=== PATIENT | female | born 1950 | race Caucasian/White ===

== ENCOUNTER 2016-08-17 19:49 | Observation (INO) | payer MEDICARE, OTHER ==
[~2016-08-17] VITALS: Ht 157.5 cm; Wt 84.1 kg
[2016-08-17 20:56] LABS: HEMOGLOBIN 13.5 gm/dl (12.3-15.3); RED BLOOD COUNT 4.72 M/UL (4.00-5.10); WHITE BLOOD COUNT 10.5 K/UL (4.5-11.0)
[2016-08-17 21:11] LABS: BUN/CREATININE RATIO 28 (0-10)
[2016-08-18] MEDS ORDERED: DULERA 200 MCG8.8 GM INH (00:44)
[2016-08-18] MEDS ORDERED: FLEXERIL 10 MG10 MG PO (00:44)
[2016-08-18] MEDS ORDERED: VENTOLIN/PROVE0.5 ML INH (00:45)
[2016-08-18] MEDS ORDERED: MONTELUKAST SODI4 MG PO (00:45)
[2016-08-18] MEDS ORDERED: FERROUS SULFAT325 M2 PO (00:46)
[2016-08-18] MEDS ORDERED: ZESTRIL/PRINIVI10 MG PO (00:47)
[2016-08-18] MEDS ORDERED: HYDROCHLOROTHIA25 MG PO (00:47)
[2016-08-18] MEDS ORDERED: [UNRECOGNIZED DRUG - REMARK] PO (00:47)
[2016-08-18] MEDS ORDERED: SINGULAIR10 MG PO (00:48)
[2016-08-18] MEDS ORDERED: GLUCOPHAGE XR750 MG PO (00:48)
[2016-08-18] MEDS ORDERED: ZOCOR 10 MG TAB10 MG PO (00:49)
[2016-08-18] MEDS ORDERED: NITROFURANTOIN100 MG PO (00:49)
[2016-08-18] MEDS ORDERED: TESSALON PERLE100 MG PO (00:50)
[2016-08-18] MEDS ORDERED: BREO ELLIPTA 11 EACH INH (00:50)
[2016-08-18] MEDS ORDERED: IBUPROFEN800 MG PO (00:51)
[2016-08-18] MEDS ORDERED: IPRATROPIU0.2 MG/1 M INH (02:42)
[2016-08-18] MEDS ORDERED: VENTOLIN HFA 66.7 GM INH (02:44)
[2016-08-18] MEDS ORDERED: ASPIRIN81 MG PO (02:45)
[2016-08-18 04:18] LABS: RED BLOOD COUNT 4.3 M/UL (4.00-5.10); WHITE BLOOD COUNT 8.7 K/UL (4.5-11.0)
[2016-08-18 08:13] LABS: BUN/CREATININE RATIO 24 (0-10)
[2016-08-19] MEDS ORDERED: CEFTIN250 MG/5 M PO (10:04)
== END 2016-08-19 10:22 | disposition home or self-care (01) ==
LOC: ER1 19:49 → ZEROF 23:50 → MED SURG 4 23:50
PROVIDERS: Emergency Medicine; Internal Medicine; ADMIT Internal Medicine
DX: N30.00 Acute cystitis without hematuria (principal); B96.20 Unspecified Escherichia coli [E. coli] as the cause of diseases classified elsewhere; B96.1 Klebsiella pneumoniae [K. pneumoniae] as the cause of diseases classified elsewhere; D84.9 Immunodeficiency, unspecified; E11.9 Type 2 diabetes mellitus without complications; I10 Essential (primary) hypertension; J44.9 Chronic obstructive pulmonary disease, unspecified; K76.0 Fatty (change of) liver, not elsewhere classified; Z87.891 Personal history of nicotine dependence; Z82.49 Family history of ischemic heart disease and other diseases of the circulatory system; Z88.1 Allergy status to other antibiotic agents; Z88.2 Allergy status to sulfonamides; Z79.82 Long term (current) use of aspirin; Z79.84 Long term (current) use of oral hypoglycemic drugs; Z79.899 Other long term (current) drug therapy
CPT/HCPCS: 36415; 80048; 80053; 81001; 82962; 83690; 85025; 85027; 87040; 87077; 87086; 87186; 94640; 94664; 96365; 96366; 96372; 96375; 96376; 99284; G0378; J0696; J1650; J2270; J2405; J7030; J7050

== ENCOUNTER → 2016-09-19 | Outpatient (CLI) | payer MEDICARE, OTHER ==
[~2016-09-19] MED LIST: ASPIRIN81 MG PO; BREO ELLIPTA 11 EACH INH; CEFTIN250 MG/5 M PO; DULERA 200 MCG8.8 GM INH; FERROUS SULFAT325 M2 PO; FLEXERIL 10 MG10 MG PO; GLUCOPHAGE XR750 MG PO; HYDROCHLOROTHIA25 MG PO; IBUPROFEN800 MG PO; IPRATROPIU0.2 MG/1 M INH; MONTELUKAST SODI4 MG PO; NITROFURANTOIN100 MG PO; SINGULAIR10 MG PO; TESSALON PERLE100 MG PO; VENTOLIN HFA 66.7 GM INH; VENTOLIN/PROVE0.5 ML INH; ZESTRIL/PRINIVI10 MG PO; ZOCOR 10 MG TAB10 MG PO; [UNRECOGNIZED DRUG - REMARK] PO
[2016-09-19 12:03] LABS: HEMOGLOBIN 12.9 gm/dl (12.3-15.3); RED BLOOD COUNT 4.57 M/UL (4.00-5.10); WHITE BLOOD COUNT 8.8 K/UL (4.5-11.0)
== END ==
LOC: LAB 11:35
PROVIDERS: Nurse Practitioner Family
DX: D83.9 Common variable immunodeficiency, unspecified (principal)
CPT/HCPCS: 36415; 82784; 82787; 85025

== ENCOUNTER 2016-10-08 16:22 | Emergency (ER) | payer MEDICARE, OTHER ==
[2016-10-08 18:26] LABS: BUN/CREATININE RATIO 23 (0-10)
[2016-10-08 18:44] LABS: HEMOGLOBIN 12.4 gm/dl (12.3-15.3); RED BLOOD COUNT 4.42 M/UL (4.00-5.10); WHITE BLOOD COUNT 9.4 K/UL (4.5-11.0)
== END 2016-10-08 21:16 | disposition home or self-care (01) ==
LOC: ER1 16:22
PROVIDERS: Physician Assistant
DX: J18.9 Pneumonia, unspecified organism (principal); N39.0 Urinary tract infection, site not specified; E11.9 Type 2 diabetes mellitus without complications; J44.9 Chronic obstructive pulmonary disease, unspecified; I10 Essential (primary) hypertension; E78.5 Hyperlipidemia, unspecified; Z87.891 Personal history of nicotine dependence; Z88.2 Allergy status to sulfonamides
CPT/HCPCS: 36415; 71010; 80053; 81001; 85025; 87077; 87086; 87186; 94664; 96374; 99284; J0696; J7050

== ENCOUNTER → 2020-07-05 | Outpatient (CLI) | payer MEDICARE, OTHER ==
[~2020-07-05] MED LIST changes: +ASPIR-LOW81 MG PO; -ASPIRIN81 MG PO; +ATIVAN 1MG TABLE1 MG PO; +ATIVAN1 MG PO; -BREO ELLIPTA 11 EACH INH; +BREO ELLIPTA 21 EACH INH; +BUTALB-ACETAMI1 EAC1 PO; +CENTRUM CHEWAB1 EAC2 PO; +CLARITHROMYCIN500 MG PO; +CLARITIN10 MG PO; +DEXAMETHASONE4 MG PO; +ETHAMBUTOL HCL400 MG PO; +FIBER625 MG PO; +GLUCOPHAGE 500500 MG PO; -GLUCOPHAGE XR750 MG PO; +LANTUS100 UNIT/1 SQ; +LEVAQUIN750 MG PO; +LEVOTHYROXINE50 MCG PO; +LISINOPRIL20 MG PO; +LISINOPRIL40 MG PO; +MACROBID 100 M100 MG PO; +MIRALAX17 GM PO; +MONTELUKAST SOD10 MG PO; +NORTRIPTYLINE H10 MG PO; +NOVOLOG 10100 UNITS1 INJ; +NOVOLOG100 UNIT/1 SC; +PANTOPRAZOLE SO40 MG PO; +PROAIR HFA8.5 GM INH; +PROTONIX40 MG PO; +PYRIDIUM100 MG PO; +TRULICITY0.75 MG/0. SQ; +VASCEPA1 GM PO; +VORICONAZOLE PO; +XOPENEX0.63 MG/3 INH; -ZESTRIL/PRINIVI10 MG PO; +ZESTRIL20 MG PO; +ZOCOR10 MG PO; +ZOFRAN 8 MG TAB8 MG PO; +ZOFRAN ODT 4 MG4 MG SL; +[UNRECOGNIZED DRUG - OTHER] IV
== END ==
LOC: HEART 5 16:08
DX: J44.9 Chronic obstructive pulmonary disease, unspecified (principal)
CPT/HCPCS: 94060; 94729

== ENCOUNTER 2020-11-17 03:59 | Emergency (ER) | payer MEDICARE, OTHER ==
[2020-11-17 04:42] LABS: HEMOGLOBIN 12.7 gm/dl (12.3-15.3); RED BLOOD COUNT 4.67 M/UL (4.00-5.10)
[2020-11-17 05:10] LABS: BUN/CREATININE RATIO 21 (0-10)
[2020-11-17] MEDS ORDERED: GUAIFENESIN AC473 ML PO (06:54)
== END 2020-11-17 07:22 | disposition home or self-care (01) ==
LOC: ER1 03:59
PROVIDERS: Student in an Organized Health Care Education/Training Program
DX: U07.1 COVID-19 (principal); F17.210 Nicotine dependence, cigarettes, uncomplicated; Z88.1 Allergy status to other antibiotic agents; J44.9 Chronic obstructive pulmonary disease, unspecified; E11.9 Type 2 diabetes mellitus without complications; I10 Essential (primary) hypertension; Z23 Encounter for immunization
CPT/HCPCS: 71045; 80053; 81001; 82550; 82553; 83874; 84484; 85025; 93005; 99285; M0243; U0002

== ENCOUNTER 2021-06-04 13:53 | Emergency (ER) | payer MEDICARE, OTHER ==
[~2021-06-04 13:53] MED LIST changes: +GUAIFENESIN AC473 ML PO
[2021-06-04 14:54] LABS: HEMOGLOBIN 12.9 gm/dl (12.3-15.3); RED BLOOD COUNT 4.59 M/UL (4.00-5.10); WHITE BLOOD COUNT 15.1 K/UL (4.5-11.0)
[2021-06-04] MEDS ORDERED: PHENERGAN 25 MG25 M1 PO (17:50)
[2021-06-04] MEDS ORDERED: BENTYL 10MG CAP10 MG PO (17:50)
== END 2021-06-04 18:35 | disposition home or self-care (01) ==
LOC: ER1 13:53
PROVIDERS: Physician Assistant
DX: E11.65 Type 2 diabetes mellitus with hyperglycemia (principal); R19.7 Diarrhea, unspecified; Z20.822 Contact with and (suspected) exposure to COVID-19; Z88.1 Allergy status to other antibiotic agents; Z87.891 Personal history of nicotine dependence
CPT/HCPCS: 80053; 81001; 83690; 85025; 96374; 96375; 99284; J1885; J2405; J2550; J7030; Q9967; U0002

== ENCOUNTER → 2021-08-17 | Outpatient (CLI) | payer MEDICARE, OTHER ==
[~2021-08-17] MED LIST changes: +BENTYL 10MG CAP10 MG PO; +PHENERGAN 25 MG25 M1 PO
[2021-08-17 09:38] LABS: BUN/CREATININE RATIO 36 (0-10)
== END ==
LOC: LAB 08:56
PROVIDERS: Internal Medicine
DX: C50.111 Malignant neoplasm of central portion of right female breast (principal); R19.5 Other fecal abnormalities; D83.9 Common variable immunodeficiency, unspecified; E55.9 Vitamin D deficiency, unspecified
CPT/HCPCS: 36415; 80053

== ENCOUNTER 2021-09-22 11:46 | Inpatient (IN) | payer MEDICARE, OTHER ==
[~2021-09-22] VITALS: Ht 165.1 cm; Wt 79.4 kg
[~2021-09-22 11:46] MED LIST changes: +LANTUS SOL100 UNIT/1 SQ; -LANTUS100 UNIT/1 SQ; -LEVOTHYROXINE50 MCG PO; +LEVOTHYROXINE75 MCG PO; +NOVOLOG FL100 UNIT/1 SQ; -NOVOLOG100 UNIT/1 SC; -PANTOPRAZOLE SO40 MG PO
[2021-09-22 13:39] LABS: HEMOGLOBIN 11.1 gm/dl (12.3-15.3); RED BLOOD COUNT 3.96 M/UL (4.00-5.10); WHITE BLOOD COUNT 12.1 K/UL (4.5-11.0)
[2021-09-22 13:57] LABS: BUN/CREATININE RATIO 19 (0-10)
[2021-09-22 17:56] LABS: BORDETELLA PARAPERTUSSIS Not Detected (Not Detectd); BORDETELLA PERTUSSIS Not Detected (Not Detectd); CHLAMYDIA PNEUMONIAE Not Detected (Not Detectd); CORONAVIRUS HKU1 Not Detected (Not Detectd); CORONAVIRUS NL63 Not Detected (Not Detectd); CORONAVIRUS OC43 Not Detected (Not Detectd); CORONOAVIRUS 229E Not Detected (Not Detectd); HUMAN METAPNEUMOVIRUS Not Detected (Not Detectd); HUMAN RHINOVIRUS/ENTEROVIRUS Not Detected (Not Detectd); INFLUENZA A Not Detected (Not Detectd); INFLUENZA B Not Detected (Not Detectd); MYCOPLASMA PNEUMONIAE Not Detected (Not Detectd); PARAINFLUENZA VIRUS 1 Not Detected (Not Detectd); PARAINFLUENZA VIRUS 2 Not Detected (Not Detectd); PARAINFLUENZA VIRUS 3 Not Detected (Not Detectd); PARAINFLUENZA VIRUS 4 Not Detected (Not Detectd); RESPIRATORY SYNCYTIAL VIRUS Not Detected (Not Detectd)
[2021-09-22] MEDS ORDERED: CARVEDILOL3.125 MG PO (18:35)
[2021-09-22] MEDS ORDERED: CHLORTHALIDONE25 MG PO (18:36)
[2021-09-22] MEDS ORDERED: DILTIAZEM 24HR240 M1 PO (18:37)
[2021-09-22] MEDS ORDERED: LEVALBUTER1.25 MG/3 INH (18:38)
[2021-09-22] MEDS ORDERED: ONDANSETRON ODT4 MG PO (18:39)
[2021-09-22] MEDS ORDERED: SPIRONOLACTONE25 MG PO (18:40)
[2021-09-22 19:02] LABS: SARS-CoV-2 DETECTED (Not Detectd)
[2021-09-23 07:58] LABS: HEMOGLOBIN 9.5 gm/dl (12.3-15.3); WHITE BLOOD COUNT 9.9 K/UL (4.5-11.0)
[2021-09-23 07:59] LABS: RED BLOOD COUNT 3.49 M/UL (4.00-5.10)
[2021-09-23 08:15] LABS: BUN/CREATININE RATIO 22 (0-10)
[2021-09-24 02:59] LABS: HEMOGLOBIN 9.8 gm/dl (12.3-15.3); RED BLOOD COUNT 3.56 M/UL (4.00-5.10); WHITE BLOOD COUNT 9.6 K/UL (4.5-11.0)
[2021-09-24 03:49] LABS: BUN/CREATININE RATIO 19 (0-10)
[2021-09-24 13:57] LABS: CAMPYLOBACTER Not Detected (Negative); CRYPTOSPORIDIUM Not Detected (Negative); E.COLI 0157 Not Detected (Negative); ENTEROAGGREGATIVE E.COLI (EAEC Not Detected (Negative); ENTEROPATHOGENIC E.COLI (EPEC) Not Detected (Negative); ENTEROTOXIGENIC E.COLI (ETEC) Not Detected (Negative); PLESIOMONAS SHIGELLOIDES Not Detected (Negative); SALMONELLA Not Detected (Negative); SHIG/ENTEROINVAS.ECOLI (EIEC) Not Detected (Negative); SHIGA-LIK TOX.PRO.E.COLI (STEC Not Detected (Negative); VIBRIO Not Detected (Negative); VIBRIO CHOLERAE Not Detected (Negative); YERSINIA ENTEROCOLITICA Not Detected (Negative)
[2021-09-24 13:58] LABS: ADENOVIRUS F 40/41 Not Detected (Negative); ASTROVIRUS Not Detected (Negative); ENTAMOEBA HISTOLYTICA Not Detected (Negative); GIARDIA LAMBLIA Not Detected (Negative); NOROVIRUS GI/GII Not Detected (Negative); ROTOVIRUS A Not Detected (Negative); SAPOVIRUS Not Detected (Negative)
[2021-09-25 01:48] LABS: HEMOGLOBIN 9.6 gm/dl (12.3-15.3); RED BLOOD COUNT 3.46 M/UL (4.00-5.10); WHITE BLOOD COUNT 10.5 K/UL (4.5-11.0)
[2021-09-25 02:13] LABS: BUN/CREATININE RATIO 21 (0-10)
[2021-09-25 07:59] LABS: CLOSTRIDIUM DIFFICILE TOX A/B Not Detected (Negative)
[2021-09-26 02:13] LABS: BUN/CREATININE RATIO 24 (0-10)
[2021-09-27 02:09] LABS: HEMOGLOBIN 9.3 gm/dl (12.3-15.3); RED BLOOD COUNT 3.35 M/UL (4.00-5.10); WHITE BLOOD COUNT 13.3 K/UL (4.5-11.0)
[2021-09-27 02:24] LABS: BUN/CREATININE RATIO 23 (0-10)
--- NOTE | 2021-09-27 08:51 | NUR ---
PT OXYGEN SAT ON ROOM AIR IS 93%
[2021-09-27 16:59] LABS: HEMOGLOBIN 9.9 gm/dl (12.3-15.3); RED BLOOD COUNT 3.53 M/UL (4.00-5.10)
--- NOTE | 2021-09-28 01:34 | NUR ---
REVIEWED ASSESMENT FROM PCU NURSE PRIOR TO TRANSFER TO [facility] [place], AGREE WITH ALL ASSESMENTS.
[2021-09-28 09:14] LABS: HEMOGLOBIN 9.7 gm/dl (12.3-15.3); RED BLOOD COUNT 3.52 M/UL (4.00-5.10); WHITE BLOOD COUNT 11.5 K/UL (4.5-11.0)
[2021-09-28 09:40] LABS: BUN/CREATININE RATIO 27 (0-10)
[2021-09-28] MEDS ORDERED: HUMIBID LA TAB600 MG PO (12:14)
[2021-09-28] MEDS ORDERED: AZITHROMYCIN500 MG PO (12:14)
[2021-09-28] MEDS ORDERED: AMOX TR-K CLV1 EAC4 PO (12:14)
[2021-09-28] MEDS ORDERED: LEVALBUTER1.25 MG/3 INH (12:15)
== END 2021-09-28 13:57 | disposition home or self-care (01) | DRG 871 ==
LOC: ER1 11:46 → CDU 18:44 → PROG CARE 18:44 → M/S 18:44 → PROG CARE 21:02 → M/S 09-27 23:00
PROVIDERS: Internal Medicine; Physician Assistant Medical; ADMIT Internal Medicine
PROC: 3E03329 Introduction of Other Anti-infective into Peripheral Vein, Percutaneous Approach (ICD-10-PCS; principal; 2021-09-22)
PROC: XW033E5 Introduction of Remdesivir Anti-infective into Peripheral Vein, Percutaneous Approach, New Technology Group 5 (ICD-10-PCS; 2021-09-22)
PROC: 8E0ZXY6 Isolation (ICD-10-PCS; 2021-09-22)
DX: A41.89 Other specified sepsis (principal); U07.1 COVID-19; J12.82 Pneumonia due to coronavirus disease 2019; J96.01 Acute respiratory failure with hypoxia; E87.1 Hypo-osmolality and hyponatremia; J44.1 Chronic obstructive pulmonary disease with (acute) exacerbation; D83.9 Common variable immunodeficiency, unspecified; J44.0 Chronic obstructive pulmonary disease with (acute) lower respiratory infection; E11.9 Type 2 diabetes mellitus without complications; R19.7 Diarrhea, unspecified; K76.0 Fatty (change of) liver, not elsewhere classified; Z85.3 Personal history of malignant neoplasm of breast; Z90.11 Acquired absence of right breast and nipple; Z98.891 History of uterine scar from previous surgery; Z90.49 Acquired absence of other specified parts of digestive tract; Z88.1 Allergy status to other antibiotic agents; Z88.2 Allergy status to sulfonamides; Z82.49 Family history of ischemic heart disease and other diseases of the circulatory system; Z87.891 Personal history of nicotine dependence
CPT/HCPCS: 0240U; 36415; 71045; 80048; 80053; 82550; 82553; 82962; 83605; 83735; 83880; 84484; 85025; 85027; 87040; 87081; 87086; 87278; 87507; 87633; 93005; 94640; 94664; 94760; 94762; 96374; 96375; 99285; C9113; J0248; J0456; J0696; J1642; J1650; J2185; J2405; J7030; J7070; Q0177

== ENCOUNTER 2021-10-10 15:35 | Emergency (ER) | payer MEDICARE, OTHER ==
[~2021-10-10 15:35] MED LIST changes: +AMOX TR-K CLV1 EAC4 PO; +AZITHROMYCIN500 MG PO; +CARVEDILOL3.125 MG PO; +CHLORTHALIDONE25 MG PO; +DILTIAZEM 24HR240 M1 PO; +HUMIBID LA TAB600 MG PO; +LEVALBUTER1.25 MG/3 INH; +ONDANSETRON ODT4 MG PO; +SPIRONOLACTONE25 MG PO
== END 2021-10-10 22:40 | disposition home or self-care (01) ==
LOC: ER1 15:35
PROVIDERS: Family Medicine
DX: E87.1 Hypo-osmolality and hyponatremia (principal); E87.5 Hyperkalemia; I10 Essential (primary) hypertension; E11.9 Type 2 diabetes mellitus without complications; J44.9 Chronic obstructive pulmonary disease, unspecified; Z88.1 Allergy status to other antibiotic agents
CPT/HCPCS: 80048; 84132; 93005; 96374; 96375; 99283